=== PATIENT | male | born 1960 | race Caucasian/White ===

== ENCOUNTER 2016-09-03 19:06 | Emergency (ER) | payer OTHER ==
[~2016-09-03] VITALS: Ht 175.3 cm; Wt 97.5 kg
--- NOTE | 2016-09-03 19:06 | NUR ---
Patient MARY ELLENSuleman ANDREA, triaged by RN. Waiting for an available bed.
[2016-09-03 19:12] VITALS: BP 145/89
[2016-09-03] MEDS ORDERED: ZOCOR40 MG PO (19:50)
--- NOTE | 2016-09-03 19:50 | NUR ---
PT TAKEN TO BED 5
[2016-09-03] MEDS ORDERED: ATARAX HCL25 MG PO (19:53)
[2016-09-03] MEDS ORDERED: VITAMIN D1000 IU PO (19:53)
[2016-09-03] MEDS ORDERED: COLACE100 M1 PO (19:53)
[2016-09-03] MEDS ORDERED: MICRONASE5 MG PO (19:53)
[2016-09-03] MEDS ORDERED: LOTENSIN20 MG PO (19:53)
[2016-09-03] MEDS ORDERED: ZOLOFT50 MG PO (19:53)
[2016-09-03] MEDS ORDERED: PEPCID20 MG PO (19:53)
[2016-09-03] MEDS ORDERED: GLUCOPHAGE1000 MG PO (19:53)
[2016-09-03] MEDS ORDERED: ELAVIL50 MG PO (19:53)
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
--- NOTE | 2016-09-03 20:10 | NUR ---
TAKE PATIENT TO X-RAY
--- NOTE | 2016-09-03 20:39 | NUR ---
PATIENT BACK FROM X-RAY
--- NOTE | 2016-09-03 20:58 | NUR ---
Dr. Naranjo evaluating patient at bedside.
[2016-09-03] MEDS ORDERED: ACETAMINOPHEN EXTRA STRENGTH 500 MG TAB PO ONE (21:35)
--- NOTE | 2016-09-03 21:50 | NUR ---
Patient discharged with v/s stable. Written and verbal after care instructions given and explained. Patient verbalized understanding. Ambulatory with steady gait. All questions addressed prior to discharge. Advised to follow up with PMD.
[2016-09-03 21:51] VITALS: BP 115/72
== END 2016-09-03 21:50 | disposition home or self-care (01) ==
LOC: MED 19:06
DX: S16.1XXA Strain of muscle, fascia and tendon at neck level, initial encounter (principal); E11.9 Type 2 diabetes mellitus without complications; I10 Essential (primary) hypertension; V89.2XXA Person injured in unspecified motor-vehicle accident, traffic, initial encounter; Y93.89 Activity, other specified; Y92.89 Other specified places as the place of occurrence of the external cause; Y99.8 Other external cause status

== ENCOUNTER 2018-08-06 08:58 | Emergency (ER) | payer OTHER ==
[~2018-08-06] VITALS: Ht 172.7 cm; Wt 88.9 kg
[~2018-08-06 08:58] MED LIST: ATA25 PO; BENA20TA PO; DOCU-299 PO; ELA50 PO; FAMO-90 PO; METF1000 PO; MIC5 PO; SERT50TA PO; SIMV40TA1 PO; VITD1000 PO
[2018-08-06 09:04] VITALS: BP 133/78
--- NOTE | 2018-08-06 09:12 | NUR ---
PT AMBULATES TO BED 2
[2018-08-06] MEDS ORDERED: KETOROLAC 60 MG/2 ML VIAL IM ONE (09:15)
--- NOTE | 2018-08-06 09:25 | NUR ---
Patient being evaluated by physician at bedside.
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
[2018-08-06 10:45] VITALS: BP 124/76
--- NOTE | 2018-08-06 10:45 | NUR ---
Patient discharged with v/s stable. Written and verbal after care instructions given and explained. Patient alert, oriented and verbalized understanding of instructions. Ambulatory with steady gait. All questions addressed prior to discharge. ID band removed. Patient advised to follow up with PMD. Rx of NORCO AND MOTRIN given. Patient educated on indication of medication including possible reaction and side effects. Opportunity to ask questions provided and answered.
== END 2018-08-06 10:45 | disposition home or self-care (01) ==
LOC: MED 08:58
DX: M54.6 Pain in thoracic spine (principal); M25.512 Pain in left shoulder; E11.9 Type 2 diabetes mellitus without complications; I10 Essential (primary) hypertension; Z79.84 Long term (current) use of oral hypoglycemic drugs; Z79.899 Other long term (current) drug therapy; Z90.49 Acquired absence of other specified parts of digestive tract; Z88.5 Allergy status to narcotic agent
CPT/HCPCS: 96372; 99283; J1885

== ENCOUNTER 2019-02-16 00:55 | Inpatient (IN) | payer OTHER ==
[~2019-02-16] VITALS: Ht 170.2 cm; Wt 80.7 kg
[2019-02-16 00:59] VITALS: BP 167/90
--- NOTE | 2019-02-16 00:59 | NUR ---
PT BIBA BLS TO ER BED 2
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
[2019-02-16] MEDS ORDERED: FAMOTIDINE 20 MG/2 ML VIAL IVP ONE (01:15)
[2019-02-16] MEDS ORDERED: NACL 0.9% 1,000 ML IV ONE (01:15)
[2019-02-16] MEDS ORDERED: ONDANSETRON 4 MG/2 ML VIAL IVP ONE (01:15)
[2019-02-16 01:49] LABS: BASOPHILS % (AUTO) 0.7 % (0.0-2.0); EOSINOPHILS # (AUTO) 0.3 K/uL (0-0.4); EOSINOPHILS % (AUTO) 3.9 % (0.0-4.0); HEMATOCRIT 39.5 % (36-52); HEMOGLOBIN 13.6 g/dL (12.0-18.0); LYMPHOCYTES # (AUTO) 1.5 K/uL (2.0-11.5); LYMPHOCYTES % (AUTO) 23.1 % (20.5-51.1); MEAN CORPUSCULAR HEMOGLOBIN 29 pg (27-31); MEAN CORPUSCULAR HGB CONC 34 g/dL (33-37); MEAN CORPUSCULAR VOLUME 85.2 fL (80-94); MONOCYTES # (AUTO) 0.4 K/uL (0.8-1.0); MONOCYTES % (AUTO) 6.1 % (1.7-9.3); NEUTROPHILS # (AUTO) 4.4 K/uL (1.8-7.7); NEUTROPHILS % (AUTO) 66.2 % (42.2-75.2); PLATELET COUNT (AUTO) 272 K/uL (140-450); RED BLOOD CELL COUNT(AUTO) 4.63 MIL/uL (4.20-6.10); WHITE BLOOD COUNT (AUTO) 6.6 K/uL (4.8-10.8)
--- NOTE | 2019-02-16 02:00 | NUR ---
PT REPORTING SOME RELIEF FROM SYMPTOMS AT THIS TIME. NO EPISODES OF VOMITTING SINCE MEDICATION ADMIN.
[2019-02-16 02:07] LABS: PROTHROMBIN TIME 9.6 secs (10.8-13.4)
[2019-02-16 02:10] LABS: ALBUMIN 3.7 g/dL (3.4-5.0); ANION GAP 12.5 (8-16); CARBON DIOXIDE 29.1 mmol/L (21-32); CREATININE 0.6 mg/dL (0.7-1.3); POTASSIUM 3.6 mmol/L (3.5-5.1); TOTAL BILIRUBIN 0.4 mg/dL (0.0-1.0)
[2019-02-16] MEDS ORDERED: INSULIN REGULAR, HUMAN 100 UNIT/ML VIAL IVP ONE (02:15)
[2019-02-16 02:37] LABS: APPEARANCE,URINE CLEAR (CLEAR); BILIRUBIN,URINE NEGATIVE (NEGATIVE); BLOOD, URINE NEGATIVE (NEGATIVE); COLOR,URINE YELLOW (YELLOW); LEUKOCYTE ESTERASE ,URINE NEGATIVE (NEGATIVE); NITRITE, URINE NEGATIVE (NEGATIVE); UGLUCOSE 3+ (NEGATIVE)
[2019-02-16 02:46] LABS: RBC,URINE 0-5 /HPF (0-5)
[2019-02-16 02:49] LABS: WBC,URINE NONE SEEN /HPF (0-5); YEAST,URINE Rare /HPF (None Seen)
[2019-02-16] MEDS ORDERED: PANTOPRAZOLE 40 MG INJ VIAL IVP ONE (03:10)
[2019-02-16] MEDS ORDERED: PIPERACILLIN/TAZOBACTAM 3.375 GM in DEXTROSE 5% 50 ML IV ONE (03:10)
[2019-02-16] MEDS ORDERED: PIPERACILLIN/TAZOBACTAM 3.375 GM VIAL IV ONE (03:24)
--- NOTE | 2019-02-16 04:02 | NUR ---
Patient will be admitted to care of DR PAZ. Admited to TELE. Will go to room ICU-05. Belongings list completed. Report to DANETTE LAUREN.
[2019-02-16] MEDS ORDERED: DOCUSATE SODIUM 250 MG GELCAP PO PRN (04:20)
[2019-02-16] MEDS ORDERED: MORPHINE SULFATE 2 MG/ML SYR IVP PRN (04:20)
[2019-02-16] MEDS ORDERED: IPRATROPIUM 0.02% 0.5 MG/2.5 ML NEBU INH PRN (04:20)
[2019-02-16] MEDS ORDERED: POTASSIUM CHLORIDE 40 MEQ, LIDOCAINE 1% 25 MG in NACL 0.9% 250 ML IV PRN (04:20)
[2019-02-16] MEDS ORDERED: guaiFENesin DM 200/20 MG-10 ML 10 ML UDC PO PRN (04:20)
[2019-02-16] MEDS ORDERED: HYDROcodone/APAP 5/325 MG 1 TAB TAB PO PRN ×2 (04:20)
[2019-02-16] MEDS ORDERED: DEXTROSE 50% 50 ML SYR IVP PRN (04:20)
[2019-02-16] MEDS ORDERED: ZOLPIDEM 5 MG TAB PO PRN (04:20)
[2019-02-16] MEDS ORDERED: ALBUTEROL 0.083% 2.5 MG/3 ML NEBU INH PRN (04:20)
[2019-02-16] MEDS ORDERED: ALUMINUM HYD/MAG/SIMETHICONE 30 ML UDC PO PRN (04:20)
[2019-02-16] MEDS ORDERED: LORazepam 2 MG/ML VIAL IVP PRN (04:20)
[2019-02-16] MEDS ORDERED: BISACODYL 10 MG SUPP RC PRN (04:20)
[2019-02-16] MEDS ORDERED: MAGNESIUM OXIDE 400 MG TAB PO PRN (04:20)
[2019-02-16] MEDS ORDERED: diphenhydrAMINE 50 MG/ML VIAL IVP PRN (04:20)
[2019-02-16] MEDS ORDERED: POTASSIUM CHLORIDE 10 MEQ TABER PO PRN (04:20)
[2019-02-16] MEDS ORDERED: MAG SULF 2000 MG/WATER PREMIX 50 ML IV PRN (04:20)
[2019-02-16] MEDS ORDERED: SODIUM PHOSPHATE 118 ML ENEM RC PRN (04:20)
[2019-02-16] MEDS ORDERED: cloNIDine 0.1 MG TAB PO PRN (04:20)
[2019-02-16] MEDS ORDERED: ONDANSETRON 4 MG/2 ML VIAL IVP PRN (04:20)
[2019-02-16] MEDS ORDERED: ACETAMINOPHEN 650 MG SUPP RC PRN (04:20)
--- NOTE | 2019-02-16 04:30 | NUR ---
PATIENT ARRIVED FROM ER VIA GURNEY. PATIENT AA0X4. ABLE TO TRANSFER TO BED. PRESENT ON ADMISSION. PATIENT SET UP ON MONITOR. VVS. 129/76-17-100% ON 3L O2-86. NO SOB. NO DIFFICULTY BREATHING. PATIENT FOLLOWS COMMANDS. ABLE TO COMMUNICATE NEEDS. COLOR PINK, WARM AND DRY. LUNG SOUNDS SYMMETRICAL AND PRESENT WITH CLEAR DIMINISHED SOUNDS BILATERALLY, BOWEL SOUNDS ACTIVE IN ALL 4 QUADRANTS. SKIN INTACT WITH A CLOSED SCAB DIME SIZE TO RIGHT ANKLE PRIOR TO ADMISSION. STATES NO PAIN AT THIS TIME. DENIES ABDOMINAL PAIN AT THIS TIME. PATIENT STATES HAVING A STEAK, BAKED POTATO AND VEGGIES DINNER WHEN FELT WEAK. HAD NAUSEA AND VOMITING ONSET AROUND 1830 ON 02/15/2019. PATIENT DENIES NAUSEA AND VOMITING AT THIS TIME. REQUESTING WATER. PATIENT REPORTS REGULAR DIET. PULSES FELT IN ALL EXTREMITIES. CAP REFILL LESS THAN 3. NO EDEMA NOTED. INTACT SKIN. VSS AT TIME TIME. PATIENT STATES ABLE TO AMBULATE BUT USES ASSISTANCE TO HELP STEADY. SAFETY MEASURES IN PLACE. HOB 30 DEGREES.
[2019-02-16] MEDS: NACL 0.9% 1,000 ML IV SCH ×2 (04:56→17:26)
[2019-02-16] MEDS ORDERED: cefTRIAXone 1,000 MG VIAL ONE ×2 (05:06→05:07)
--- NOTE | 2019-02-16 06:20 | NUR ---
PT LEFT THE UNIT AND TRANSFERRED TO [facility]. PT AWAKE, ALERT AND ORIENTED. ABLE TO MAKE NEEDS KNOWN. VS REMAINS STABLE.
[2019-02-16 06:22] LABS: BASOPHILS % (AUTO) 0.5 % (0.0-2.0); EOSINOPHILS # (AUTO) 0.1 K/uL (0-0.4); EOSINOPHILS % (AUTO) 1.1 % (0.0-4.0); HEMATOCRIT 37.1 % (36-52); HEMOGLOBIN 12.7 g/dL (12.0-18.0); LYMPHOCYTES # (AUTO) 1.2 K/uL (2.0-11.5); LYMPHOCYTES % (AUTO) 16.8 % (20.5-51.1); MEAN CORPUSCULAR HEMOGLOBIN 29 pg (27-31); MEAN CORPUSCULAR HGB CONC 34 g/dL (33-37); MEAN CORPUSCULAR VOLUME 85.5 fL (80-94); MONOCYTES # (AUTO) 0.4 K/uL (0.8-1.0); MONOCYTES % (AUTO) 5.1 % (1.7-9.3); NEUTROPHILS # (AUTO) 5.7 K/uL (1.8-7.7); NEUTROPHILS % (AUTO) 76.5 % (42.2-75.2); PLATELET COUNT (AUTO) 259 K/uL (140-450); RED BLOOD CELL COUNT(AUTO) 4.33 MIL/uL (4.20-6.10); RED CELL DISTRIBUTION WIDTH 13.2 % (11.6-13.7); WHITE BLOOD COUNT (AUTO) 7.4 K/uL (4.8-10.8)
--- NOTE | 2019-02-16 07:00 | NUR ---
RECEIVED REPORT FROM ICU NURSE. PATIENT LYING DOWN IN BED SLEEPING, AROUSABLE BY VOICE. NO DISTRESS NOTED. DENIES ANY PAIN AT THIS TIME. AAOX4, CALM, COOPERATIVE, SKIN COLOR APPROPRIATE ETHNICITY, WARM TO TOUCH. SKIN INTACT. IV SITE INTACT, PATENT, AND INFUSING IVF PER MD ORDERS. ABDOMEN SOFT, NON-DISTENDED. LBM 02/14/19 PER PATIENT REPORTS. REVIEWED PLAN OF CARE WITH PATIENT. PATIENT VERBALIZED UNDERSTANDING. SAFETY MEASURES IN PLACE, CALL LIGHT WITHIN REACH. WILL CONTINUE TO MONITOR.
[2019-02-16 08:00] VITALS: BP 119/75
[2019-02-16] MEDS: INSULIN LISPRO SLIDING SCALE 100 UNITS/ML VIAL SUBQ PRN ×4 (08:20→20:59)
[2019-02-16] MEDS: BLOOD GLUCOSE MONITORING 1 DEV DEV FS SCH ×4 (08:20→20:53)
--- NOTE | 2019-02-16 08:20 | NUR ---
PATIENT SITTING DOWN IN BED WITH BREAKFAST TRAY IN FRONT. NO DISTRESS NOTED. DENIES ANY PAIN. SCHEDULED MEDICATIONS DUE GIVEN. WILL CONTINUE TO MONITOR.
--- NOTE | 2019-02-16 10:28 | NUR ---
PATIENT SITTING IN BED WATCHING TV. NO DISTRESS NOTED. DENIES ANY PAIN. CONDITION UNCHANGED. WILL CONTINUE TO MONITOR.
[2019-02-16 12:00] VITALS: BP 117/74
--- NOTE | 2019-02-16 12:17 | NUR ---
PATIENT LYING DOWN IN BED SLEEPING, AROUSABLE BY VOICE. NO DISTRESS NOTED. CONDITION UNCHANGED. SCHEDULED MEDICATIONS DUE GIVEN. WILL CONTINUE TO MONITOR.
[2019-02-16] MEDS ORDERED: DOCUSATE SODIUM 100 MG GELCAP PO PRN (12:25)
[2019-02-16] MEDS ORDERED: hydrOXYzine HCL 25 MG TAB PO PRN (12:25)
[2019-02-16] MEDS: ACETAMINOPHEN 325 MG TAB PO PRN (15:04)
[2019-02-16 16:00] VITALS: BP 124/80
--- NOTE | 2019-02-16 17:22 | NUR ---
PATIENT HAS SPUTUM CULTURE PENDING AND STOOL OB. PATIENT ALREADY KNOWS AND VERBALIZED UNDERSTANDING, HOWEVER, NO SPUTUM OR BM YET. WILL CONTINUE TO MONITOR.
--- NOTE | 2019-02-16 17:28 | NUR ---
PATIENT SITTING DOWN IN BED WATCHING TV. TALKING TO FAMILY MEMBER AT BEDSIDE. SCHEDULED MEDICATIONS DUE GIVEN. WILL CONTINUE TO MONITOR.
--- NOTE | 2019-02-16 19:28 | NUR ---
GAVE REPORT TO VERMIN EXTERMINATOR NURSE FOR CONTINUITY OF CARE. PATIENT IN STABLE CONDITION.
--- NOTE | 2019-02-16 19:29 | NUR ---
RECEIVED REPORT FROM DAY SHIFT NURSE SHANTAL-RN AT BEDSIDE. PT RESTING IN BED, AOX4, ON ROOM AIR WITH RIGHT HAND #18G RUNNING NS @ 70ML/HR. DISCUSSED PLAN OF CARE AND PT VERBALIZED UNDERSTANDING. NO S/S OF RESPIRATORY DISTRESS OR DISCOMFORT NOTED AT THIS TIME. BED IN LOWEST POSITION, BED BREAKS ON, BED SIDE RIALS UP AND FALL PRECAUTIONS IN PLACE. BEDSIDE TABLE AND CALL LIGHT ARE WITHIN REACH. WILL CONTINUE TO MONITOR.
[2019-02-16 20:00] VITALS: BP 116/72
--- NOTE | 2019-02-16 20:00 | NUR ---
VITAL SIGNS TAKEN AND TOLERATED WELL. BLOOD GLUCOSE 380- WILL ADMINISTER INSULIN COVERAGE. NO S/S OF RESPIRATORY DISTRESS OR DISCOMFORT NOTED AT THIS TIME. WILL CONTINUE TO MONITOR.
[2019-02-16] MEDS: SIMVASTATIN 40 MG TAB PO SCH (20:51)
[2019-02-16] MEDS: AMITRIPTYLINE 50 MG TAB PO SCH (20:52)
[2019-02-16] MEDS: FAMOTIDINE 20 MG TAB PO SCH (20:52)
[2019-02-16] MEDS: metFORMIN 500 MG TAB PO SCH (20:52)
[2019-02-16] MEDS: glyBURIDE 5 MG TAB PO SCH (20:52)
--- NOTE | 2019-02-16 21:00 | NUR ---
SCHEDULED MEDICATIONS GIVEN AND TOLERATED WELL. INSULIN COVERAGE GIVEN AND TOLERATED WELL. NO S/S OF RESPIRATORY DISTRESS OR DISCOMFORT NOTED AT THIS TIME. WILL CONTINUE TO MONITOR.
--- NOTE | 2019-02-16 22:00 | NUR ---
PT SLEEPING IN BED. NO S/S OF RESPIRATORY DISTRESS OR DISCOMFORT NOTED AT THIS TIME. WILL CONTINUE TO MONITOR.
[2019-02-17] VITALS: BP 100/69
--- NOTE | 2019-02-17 | NUR ---
VITAL SIGNS TAKEN AND TOLERATED WELL. NO S/S OF RESPIRATORY DISTRESS OR DISCOMFORT NOTED AT THIS TIME. WILL CONTINUE TO MONITOR.
--- NOTE | 2019-02-17 02:00 | NUR ---
PT CONTINUES SLEEPING IN BED. NO S/S OF RESPIRATORY DISTRESS OR DISCOMFORT NOTED AT THIS TIME. WILL CONTINUE TO MONITOR.
--- NOTE | 2019-02-17 03:39 | NUR ---
SCHEDULED MEDICATION ROCEPHIN GIVEN AND TOLERATED WELL. NO S/S OF RESPIRATORY DISTRESS OR DISCOMFORT NOTED AT THIS TIME. WILL CONTINUE TO MONITOR.
[2019-02-17 04:00] VITALS: BP 93/60
--- NOTE | 2019-02-17 04:00 | NUR ---
VITAL SIGNS TAKEN AND TOLERATED WELL. NO S/S OF RESPIRATORY DISTRESS OR DISCOMFORT NOTED AT THIS TIME. WILL CONTINUE TO MONITOR.
--- NOTE | 2019-02-17 06:00 | NUR ---
BLOOD GLUCOSE 209- WILL ADMINISTER INSULIN COVERAGE. NO S/S OF RESPIRATORY DISTRESS OR DISCOMFORT NOTED AT THIS TIME. WILL CONTINUE TO MONITOR.
[2019-02-17] MEDS: BLOOD GLUCOSE MONITORING 1 DEV DEV FS SCH ×4 (06:37→21:07)
[2019-02-17] MEDS: INSULIN LISPRO SLIDING SCALE 100 UNITS/ML VIAL SUBQ PRN ×4 (06:42→21:10)
--- NOTE | 2019-02-17 06:42 | NUR ---
INSULIN COVERAGE GIVEN AND TOLERATED WELL. PT RESTING IN BED. NO S/S OF RESPIRATORY DISTRESS OR DISCOMFORT NOTED AT THIS TIME. WILL CONTINUE TO MONITOR.
--- NOTE | 2019-02-17 07:37 | NUR ---
RECEIVED HAND OFF REPORT FROM NURSE MIDWIFE/CLINICAL INSTRUCTOR NURSE PT APPEARS STABLE AND IN NO APPARENT DISTRESS. ALL SAFETY MEASURES ARE IN PLACE WILL CONTINUE TO MONITOR.
[2019-02-17 07:41] LABS: MAGNESIUM 1.7 mg/dL (1.8-2.4); PHOSPHORUS 3.3 mg/dL (2.5-4.9)
[2019-02-17 07:54] LABS: BASOPHILS # (AUTO) 0.1 K/uL (0.00-0.22); BASOPHILS % (AUTO) 1.2 % (0.0-2.0); EOSINOPHILS # (AUTO) 0.4 K/uL (0-0.4); EOSINOPHILS % (AUTO) 6.6 % (0.0-4.0); HEMATOCRIT 34.2 % (36-52); HEMOGLOBIN 11.7 g/dL (12.0-18.0); LYMPHOCYTES # (AUTO) 2.2 K/uL (2.0-11.5); MEAN CORPUSCULAR HEMOGLOBIN 29 pg (27-31); MEAN CORPUSCULAR HGB CONC 34 g/dL (33-37); MONOCYTES # (AUTO) 0.3 K/uL (0.8-1.0); MONOCYTES % (AUTO) 4.9 % (1.7-9.3); NEUTROPHILS # (AUTO) 3.7 K/uL (1.8-7.7); NEUTROPHILS % (AUTO) 54.3 % (42.2-75.2); PLATELET COUNT (AUTO) 228 K/uL (140-450); RED BLOOD CELL COUNT(AUTO) 3.98 MIL/uL (4.20-6.10); RED CELL DISTRIBUTION WIDTH 12.9 % (11.6-13.7); WHITE BLOOD COUNT (AUTO) 6.8 K/uL (4.8-10.8)
[2019-02-17 08:00] VITALS: BP 105/64
[2019-02-17 08:41] LABS: CREATININE 0.6 mg/dL (0.7-1.3)
[2019-02-17] MEDS: SERTRALINE 50 MG TAB PO SCH (08:59)
[2019-02-17] MEDS: BENAZEPRIL 20 MG TAB PO SCH (09:00)
[2019-02-17] MEDS: FAMOTIDINE 20 MG TAB PO SCH ×2 (09:00→21:01)
[2019-02-17] MEDS: glyBURIDE 5 MG TAB PO SCH ×2 (09:00→21:01)
[2019-02-17] MEDS: CHOLECALCIFEROL 1,000 IU TAB PO SCH (09:00)
[2019-02-17] MEDS: metFORMIN 500 MG TAB PO SCH ×2 (09:00→21:01)
[2019-02-17] MEDS: NACL 0.9% 1,000 ML IV SCH ×2 (09:01→23:14)
--- NOTE | 2019-02-17 09:40 | NUR ---
CALLED MICHAEL [phone] FOR SWALLOW EVAL. LEFT VOICEMAIL.
--- NOTE | 2019-02-17 10:06 | NUR ---
FREQUENT ROUNDING ON PT PT APPEARS STABLE AND IN NO APPARENT DISTRESS, ALL SAFETY MEASURES ARE IN PLACE WILL CONTINUE TO MONITOR.
[2019-02-17 12:00] VITALS: BP 98/65
--- NOTE | 2019-02-17 12:19 | NUR ---
PATIENT HAS BEEN SCREENED AND CATEGORIZED MODERATE NUTRITION RISK. PATIENT WILL BE SEEN WITHIN 3-5 DAYS OF ADMISSION. 02/19/19 - 02/21/19 NOE COTO MBA, RD
[2019-02-17 16:00] VITALS: BP 90/57
--- NOTE | 2019-02-17 19:25 | NUR ---
RECEIVED BEDSIDE REPORT FROM DAY SHIFT NURSE. PATIENT IS AWAKE, ALERT, AND COOPERATIVE. RESPIRATION EVEN UNLABORED ON ROOM AIR. NO DISTRESS NOTED. SKIN IS WARM AND DRY. IV PATENT AND INTACT. DENIES PAIN. AT BEDSIDE. PLAN OF CARE WAS DISCUSSED. ALL SAFETY MEASURES IN PLACE. BED IS AT LOW POSITION CALL LIGHT WITHIN REACH. WILL CONTINUE TO MONITOR.
--- NOTE | 2019-02-17 19:28 | NUR ---
ENDORSED PT TO PM RN ALL SAFETY MEASURES ARE IN PLACE. PT APPEARS STABLE ANDIN NO APPARENT DISTRESS.
[2019-02-17 20:00] VITALS: BP 90/59
--- NOTE | 2019-02-17 20:00 | NUR ---
INITIAL ASSESSMENT DONE. VITALS WERE TAKEN. PATIENT STABLE CONDITION. NO DISTRESS NOTED. WILL CONTINUE TO MONITOR.
--- NOTE | 2019-02-17 21:00 | NUR ---
ALL SCHEDULED MEDS WERE GIVEN PER ORDER. NO DISTRESS NOTED. WILL CONTINUE TO MONITOR.
[2019-02-17] MEDS: SIMVASTATIN 40 MG TAB PO SCH (21:01)
--- NOTE | 2019-02-17 21:10 | NUR ---
PATIENT COMPLAINED OF RIGHT HAND PAIN 5/10. PATIENT IV GOT INFILTRATED. D/C IV NO ACTIVE BLEEDING SEEN. CANNULA INTACT. PLACE PILLOW ON THE RIGHT HAND TO REDUCE THE SWELLING. WILL CONTINUE TO MONITOR.
[2019-02-17] MEDS: AMITRIPTYLINE 50 MG TAB PO SCH (21:13)
--- NOTE | 2019-02-17 21:30 | NUR ---
INSERTED A NEW IV TO THE LEFT FOREARM 22 G TOLERATING IT WELL. WILL CONTINUE TO MONITOR.
--- NOTE | 2019-02-17 22:45 | NUR ---
PATIENT WATCHING TV RESPIRATION EVEN UNLABORED ON ROOM AIR. NO S/SX OF INFILTRATION FROM THE IV SITE. WILL CONTINUE TO MONITOR.
[2019-02-18] VITALS: BP 98/66
--- NOTE | 2019-02-18 | NUR ---
VITALS WERE TAKEN. PATIENT IN STABLE CONDITION. NO DISTRESS NOTED. WILL CONTINUE TO MONITOR.
--- NOTE | 2019-02-18 02:00 | NUR ---
CHECKED PATIENT. PATIENT SLEEPING RESPIRATION EVEN UNLABORED ON ROOM AIR. NO DISTRESS NOTED. WILL CONTINUE TO MONITOR.
[2019-02-18] MEDS: NACL 0.9% 1,000 ML IV SCH (03:40)
[2019-02-18 04:00] VITALS: BP 108/75
--- NOTE | 2019-02-18 04:00 | NUR ---
VITALS WERE TAKEN. PATIENT IN STABLE CONDITION. NO DISTRESS NOTED. WILL CONTINUE TO MONITOR.
[2019-02-18] MEDS: INSULIN LISPRO SLIDING SCALE 100 UNITS/ML VIAL SUBQ PRN ×4 (06:24→21:29)
[2019-02-18] MEDS: BLOOD GLUCOSE MONITORING 1 DEV DEV FS SCH ×4 (06:25→21:32)
[2019-02-18 06:39] LABS: BASOPHILS % (AUTO) 0.8 % (0.0-2.0); EOSINOPHILS # (AUTO) 0.4 K/uL (0-0.4); EOSINOPHILS % (AUTO) 6.3 % (0.0-4.0); HEMATOCRIT 34.1 % (36-52); HEMOGLOBIN 11.5 g/dL (12.0-18.0); LYMPHOCYTES # (AUTO) 2.4 K/uL (2.0-11.5); LYMPHOCYTES % (AUTO) 43.2 % (20.5-51.1); MEAN CORPUSCULAR HEMOGLOBIN 29 pg (27-31); MEAN CORPUSCULAR HGB CONC 34 g/dL (33-37); MEAN CORPUSCULAR VOLUME 86.1 fL (80-94); MONOCYTES # (AUTO) 0.4 K/uL (0.8-1.0); MONOCYTES % (AUTO) 7.4 % (1.7-9.3); NEUTROPHILS # (AUTO) 2.4 K/uL (1.8-7.7); NEUTROPHILS % (AUTO) 42.3 % (42.2-75.2); PLATELET COUNT (AUTO) 212 K/uL (140-450); RED BLOOD CELL COUNT(AUTO) 3.96 MIL/uL (4.20-6.10); RED CELL DISTRIBUTION WIDTH 13.1 % (11.6-13.7); WHITE BLOOD COUNT (AUTO) 5.7 K/uL (4.8-10.8)
--- NOTE | 2019-02-18 06:43 | NUR ---
ALL DUE MEDS WERE GIVEN AND TOLERATED THEM WELL. NO ASE NOTED. PATIENT IN STABLE CONDITION. WILL CONTINUE TO MONITOR.
--- NOTE | 2019-02-18 07:11 | NUR ---
ENDORSED PATIENT TO DAY SHIFT NURSE FOR CONTINUITY OF CARE. PATIENT IN STABLE CONDITION.
--- NOTE | 2019-02-18 07:22 | NUR ---
RECEIVED HAND OFF REPORT FROM CLAIMS SERVICE ADJUSTOR NURSE PT IS AWAKE IN BED PT APPEARS STABLE AND IN NO APPARENT DISTRESS. ALL SAFETY MEASURES ARE IN PLACE WILL CONTINUE TO MONITOR.
[2019-02-18 07:36] LABS: MAGNESIUM 1.6 mg/dL (1.8-2.4); PHOSPHORUS 3.7 mg/dL (2.5-4.9)
[2019-02-18 08:00] VITALS: BP 92/65
[2019-02-18 08:08] LABS: ANION GAP 10.8 (8-16); CREATININE 0.5 mg/dL (0.7-1.3); POTASSIUM 3.8 mmol/L (3.5-5.1)
[2019-02-18] MEDS: FAMOTIDINE 20 MG TAB PO SCH ×2 (09:37→21:31)
[2019-02-18] MEDS: CHOLECALCIFEROL 1,000 IU TAB PO SCH (09:37)
[2019-02-18] MEDS: metFORMIN 500 MG TAB PO SCH ×2 (09:37→21:31)
[2019-02-18] MEDS: SERTRALINE 50 MG TAB PO SCH (09:37)
[2019-02-18] MEDS: glyBURIDE 5 MG TAB PO SCH ×2 (09:38→21:31)
[2019-02-18] MEDS: BENAZEPRIL 20 MG TAB PO SCH (09:39)
--- NOTE | 2019-02-18 09:45 | NUR ---
FREQUENT ROUNDING ON PT PT APPEARS STABLE AND APPEARS IN NO APPARENT DISTRESS.
[2019-02-18 12:00] VITALS: BP 95/59
--- NOTE | 2019-02-18 13:25 | NUR ---
FREQUENT ROUNDING ON PT PT APPEARS STABLE AND IN NO APPARENT DISTRESS. WILL CONTINUE TO MONITOR,.
--- NOTE | 2019-02-18 13:56 | NUR ---
S.T. BEDSIDE SWALLOW EVAL COMPLETED Pt presents w/ adequate oropharygeal swallow function for solids and thin liquids. No overt s/s aspiration observed. Pt able to self-feed without difficulty. Pt is, however, non-compliant with dietary restrictions. Recommend: 1) Continue regular texture diet, thin liquids ok. 2) Med staff to educate/reinforce compliance with dietary restrictions. No further tx indicated at this time. DC to [facility] care. D/w DANETTE Kumar. Time [id number]
--- NOTE | 2019-02-18 15:35 | NUR ---
FREQUENT ROUNDING ON PT PT APPEARS STABLE AND IN NO APPARENT DISTRESS. OCCULT BLOOD SAMPLE COLLECTED AND SENT TO LAB ALL SAFETY MEASURES ARE IN PLACE WILL CONTINUE TO MONITOR.
[2019-02-18 16:00] VITALS: BP 116/69
--- NOTE | 2019-02-18 17:45 | NUR ---
FREQUENT ROUNDING ON PT PT APPEARS STABLE AND IN NO APPARENT DISTRESS. ALL SAFETY MEASURES ARE IN PLACE WILL CONTINUE TO MONITOR.
--- NOTE | 2019-02-18 19:20 | NUR ---
RECEIVED BEDSIDE REPORT FROM DAY SHIFT NURSE. PATIENT IS AWAKE, ALERT, AND COOPERATIVE. RESPIRATION EVEN UNLABORED ON ROOM AIR. NO DISTRESS NOTED. SKIN IS WARM AND DRY. IV PATENT AND INTACT. DENIES PAIN. AT BEDSIDE. PLAN OF CARE WAS DISCUSSED. ALL SAFETY MEASURES IN PLACE. CALL LIGHT WITHIN REACH AND VERBALIZES ITS USE. WILL CONTINUE TO MONITOR.
--- NOTE | 2019-02-18 19:38 | NUR ---
ENDORSED PT TO PM RN ALL SAFETY MEASURES ARE IN PLACE PT APPEARS STABLE AND IN NO APPARENT DISTRESS.
[2019-02-18 20:00] VITALS: BP 106/73
--- NOTE | 2019-02-18 20:00 | NUR ---
INITIAL ASSESSMENT DONE. VITALS WERE TAKEN. NO DISTRESS NOTED. DENIES PAIN. WILL CONTINUE TO MONITOR
--- NOTE | 2019-02-18 21:00 | NUR ---
ALL SCHEDULED MEDS WERE GIVEN PER ORDER. NO ASE NOTED. WILL CONTINUE TO MONITOR.
[2019-02-18] MEDS: SIMVASTATIN 40 MG TAB PO SCH (21:31)
[2019-02-18] MEDS: AMITRIPTYLINE 50 MG TAB PO SCH (21:32)
--- NOTE | 2019-02-18 22:30 | NUR ---
CHECKED PATIENT. PATIENT ON THE PHONE RESPIRATION EVEN UNLABORED ON ROOM AIR. NO DISTRESS NOTED. WILL CONTINUE TO MONITOR
[2019-02-19] VITALS: BP 97/65
--- NOTE | 2019-02-19 | NUR ---
VITALS WERE TAKEN. PATIENT COMPLAINED OF BACK PAIN SORE 10/31. PRN PAIN TYLENOL ADMINISTERED PER ORDER. NO DISTRESS NOTED. WILL CONTINUE TO MONITOR.
[2019-02-19] MEDS: ACETAMINOPHEN 325 MG TAB PO PRN (00:26)
--- NOTE | 2019-02-19 02:00 | NUR ---
CHECKED PATIENT. PATIENT SLEEPING RESPIRATION EVEN UNLABORED ON ROOM AIR. NO DISTRESS NOTED. WILL CONTINUE TO MONITOR.
[2019-02-19] MEDS: NACL 0.9% 1,000 ML IV SCH (03:50)
[2019-02-19 04:00] VITALS: BP 121/72
--- NOTE | 2019-02-19 04:00 | NUR ---
VITALS WERE TAKEN. PATIENT IN STABLE CONDITION. NO DISTRESS NOTED. WILL CONTINUE TO MONITOR
[2019-02-19] MEDS ORDERED: AMOX-999 PO (05:12)
[2019-02-19] MEDS: INSULIN LISPRO SLIDING SCALE 100 UNITS/ML VIAL SUBQ PRN (06:23)
[2019-02-19] MEDS: BLOOD GLUCOSE MONITORING 1 DEV DEV FS SCH (06:26)
[2019-02-19 07:06] LABS: BASOPHILS % (AUTO) 0.7 % (0.0-2.0); EOSINOPHILS # (AUTO) 0.3 K/uL (0-0.4); EOSINOPHILS % (AUTO) 6.2 % (0.0-4.0); HEMATOCRIT 34.7 % (36-52); LYMPHOCYTES # (AUTO) 2.2 K/uL (2.0-11.5); LYMPHOCYTES % (AUTO) 43.5 % (20.5-51.1); MEAN CORPUSCULAR HEMOGLOBIN 30 pg (27-31); MEAN CORPUSCULAR HGB CONC 35 g/dL (33-37); MEAN CORPUSCULAR VOLUME 85.1 fL (80-94); MONOCYTES # (AUTO) 0.4 K/uL (0.8-1.0); MONOCYTES % (AUTO) 7.6 % (1.7-9.3); NEUTROPHILS # (AUTO) 2.2 K/uL (1.8-7.7); PLATELET COUNT (AUTO) 212 K/uL (140-450); RED BLOOD CELL COUNT(AUTO) 4.08 MIL/uL (4.20-6.10); RED CELL DISTRIBUTION WIDTH 13.1 % (11.6-13.7); WHITE BLOOD COUNT (AUTO) 5.1 K/uL (4.8-10.8)
[2019-02-19 07:10] LABS: ALBUMIN 2.7 g/dL (3.4-5.0); ANION GAP 10.5 (8-16); CARBON DIOXIDE 27.2 mmol/L (21-32); CREATININE 0.5 mg/dL (0.7-1.3); POTASSIUM 3.7 mmol/L (3.5-5.1); TOTAL BILIRUBIN 0.3 mg/dL (0.0-1.0)
[2019-02-19 07:13] LABS: MAGNESIUM 1.6 mg/dL (1.8-2.4); PHOSPHORUS 3.6 mg/dL (2.5-4.9)
--- NOTE | 2019-02-19 07:17 | NUR ---
ENDORSED PATIENT TO DAY SHIFT NURSE. PATIENT IN STABLE CONDITION.
--- NOTE | 2019-02-19 07:43 | NUR ---
RECEIVED HAND OFF REPORT FROM SENIOR APPLICATION PROGRAMMER NURSE PT IS AWAKE IN BED PT APPEARS STABLE AND IN NO APPARENT DISTRESS. ALL SAFETY MEASURES ARE IN PLACE WILL CONTINUE TO MONITOR.
[2019-02-19 08:00] VITALS: BP 130/78
--- NOTE | 2019-02-19 09:25 | NUR ---
FREQUENT ROUNDING ON PT PT APPEARS STABLE AND IN NO APPARENT DISTRESS. INFORMED PT OF PLAN FOR DISCHARGE PT IS READY
[2019-02-19] MEDS: metFORMIN 500 MG TAB PO SCH (09:36)
[2019-02-19] MEDS: CHOLECALCIFEROL 1,000 IU TAB PO SCH (09:36)
[2019-02-19] MEDS: glyBURIDE 5 MG TAB PO SCH (09:37)
[2019-02-19] MEDS: FAMOTIDINE 20 MG TAB PO SCH (09:37)
[2019-02-19] MEDS: BENAZEPRIL 20 MG TAB PO SCH (09:37)
[2019-02-19] MEDS: SERTRALINE 50 MG TAB PO SCH (09:38)
[2019-02-19 11:38] VITALS: BP 130/78
--- NOTE | 2019-02-19 12:12 | NUR ---
REVIEWED DISCHARGE INSTRUCTIONS ANSWERED ALL QUESTIONS PT HAS. PT APPEARS STABLE AND IN NO APPARENT DISTRESS. PT SIGNED ALL PAPER WORK AND HAS ALL HIS PERSONAL BELONGINGS IN PLACE. PT IS WAITING FOR HIS TO PICK HIM UP.
--- NOTE | 2019-02-19 12:30 | NUR ---
CALLED OFFICE OF DR SHEPHERD, SPOKE TO YANNICK, FOLLOW-UP APPOINTMENT MADE ON 03/06/19 AT 0930 AM AT [address] [place] [address]. [phone], [place] [id number]. CALLED PT AT [phone] SPOKE TO FRANK, FOLLOW-UP INFO AND SCHEDULE GIVEN TO , VERBALIZED UNDERSTANDING.
== END 2019-02-19 11:25 | disposition home or self-care (01) | DRG 137 ==
LOC: MED 00:55 → MIC 03:44 → MTU 06:20
PROVIDERS: ADMIT Internal Medicine Pulmonary Disease; ATTEND Internal Medicine Pulmonary Disease
DX: J69.0 Pneumonitis due to inhalation of food and vomit (principal); J96.01 Acute respiratory failure with hypoxia; K21.9 Gastro-esophageal reflux disease without esophagitis; I10 Essential (primary) hypertension; E78.5 Hyperlipidemia, unspecified; Z66 Do not resuscitate; F32.9 Major depressive disorder, single episode, unspecified; E11.65 Type 2 diabetes mellitus with hyperglycemia; F41.9 Anxiety disorder, unspecified; Z88.5 Allergy status to narcotic agent; Z79.899 Other long term (current) drug therapy
CPT/HCPCS: 36415; 71045; 80048; 80053; 81001; 82272; 82948; 83690; 83735; 84100; 85025; 85610; 85730; 87081; 92610; 96361; 96365; 96375; 99285; C9113; J0696; J1815; J2405; J2543; J3490; J7030; J7060; Q0092

== ENCOUNTER 2019-05-17 01:22 | Emergency (ER) | payer OTHER ==
[~2019-05-17] VITALS: Ht 175.3 cm; Wt 86.2 kg
[~2019-05-17 01:22] MED LIST changes: +AMOX-999 PO
[2019-05-17 01:40] VITALS: BP 120/73
--- NOTE | 2019-05-17 01:40 | NUR ---
TO BED # 07 AMBULATORY
[2019-05-17 01:55] VITALS: BP 120/73
--- NOTE | 2019-05-17 01:55 | NUR ---
58 Y/O PRESENTS TO ED WITH C/O LT SHOULDER PAIN X1WEEK, WORSENING LAST NIGHT. AAOX4. 7/10 PAIN. PER PT "I FEEL OUT OF BED ABOUT A WEEK AGO AND IT HASN'T STOPPED HURTING." NO DEFORMITY NOTED. PT UNABLE TO RAISE ARM ABOVE 90 DEGREES WITHOUT PAIN. PT SMOKED MARIJUANA 1 HOUR DIRECTOR EDUCATION FOR PAIN. FAMILY AT BEDSIDE. WILL CONTINUE TO MONITOR.
--- NOTE | 2019-05-17 02:05 | NUR ---
RAD AT BEDSIDE.
[2019-05-17] MEDS ORDERED: KETOROLAC 30 MG/ML VIAL IM ONE (02:30)
[2019-05-17] MEDS ORDERED: HYDROcodone/APAP 5/325 MG 1 TAB TAB PO ONE (02:30)
--- NOTE | 2019-05-17 03:10 | NUR ---
Patient discharged with v/s stable. Written and verbal after care instructions given and explained. Patient alert, oriented and verbalized understanding of instructions. Ambulatory with steady gait. All questions addressed prior to discharge. ID band removed. Patient advised to follow up with PMD. Rx of Naprosyn and norco given. Patient educated on indication of medication including possible reaction and side effects. Opportunity to ask questions provided and answered.
== END 2019-05-17 03:10 | disposition home or self-care (01) ==
LOC: MED 01:22
DX: S46.912A Strain of unspecified muscle, fascia and tendon at shoulder and upper arm level, left arm, initial encounter (principal); F12.10 Cannabis abuse, uncomplicated; I10 Essential (primary) hypertension; E11.9 Type 2 diabetes mellitus without complications; E78.5 Hyperlipidemia, unspecified; Z79.84 Long term (current) use of oral hypoglycemic drugs; Z79.899 Other long term (current) drug therapy; Z79.1 Long term (current) use of non-steroidal anti-inflammatories (NSAID); Z79.2 Long term (current) use of antibiotics; Z88.5 Allergy status to narcotic agent; Z98.890 Other specified postprocedural states; W06.XXXA Fall from bed, initial encounter; Y93.89 Activity, other specified; Y92.89 Other specified places as the place of occurrence of the external cause; Y99.8 Other external cause status
CPT/HCPCS: 73030; 96372; 99283; J1885; Q0092

== ENCOUNTER 2019-10-12 18:50 | Emergency (ER) | payer OTHER ==
[~2019-10-12] VITALS: Ht 177.8 cm; Wt 81.6 kg
[2019-10-12 18:59] VITALS: BP 131/74
--- NOTE | 2019-10-12 19:25 | NUR ---
58 YO MALE CO LWR ABD PAIN THAT RADIATES TO LOWER BACK SINCE YESTERDAY. PAIN IS 7/10 THAT IS BURNING AND STABBING. BS HYPOACTIVE IN ALL FOUR QUADS. NO DISTENSION OR PAIN UPON PALPATION. PT ALSO STATES THAT HE HAS BEEN CONSTIPATED FOR ABOUT 2D.
--- NOTE | 2019-10-12 19:53 | NUR ---
Dr. Molina examining patient.
[2019-10-12] MEDS ORDERED: NACL 0.9% 1,000 ML IV ONE ×2 (19:54→21:55)
[2019-10-12] MEDS ORDERED: ONDANSETRON 4 MG/2 ML VIAL IVP ONE (19:55)
[2019-10-12] MEDS ORDERED: MORPHINE SULFATE 4 MG/ML SYR IVP ONE (19:55)
[2019-10-12 20:15] LABS: BASOPHILS # (AUTO) 0.1 K/uL (0.00-0.22); BASOPHILS % (AUTO) 1.9 % (0.0-2.0); EOSINOPHILS # (AUTO) 0.3 K/uL (0-0.4); EOSINOPHILS % (AUTO) 3.6 % (0.0-4.0); HEMATOCRIT 38.9 % (36-52); HEMOGLOBIN 13.5 g/dL (12.0-18.0); LYMPHOCYTES # (AUTO) 1.5 K/uL (2.0-11.5); MEAN CORPUSCULAR HEMOGLOBIN 30 pg (27-31); MEAN CORPUSCULAR HGB CONC 35 g/dL (33-37); MEAN CORPUSCULAR VOLUME 85.1 fL (80-94); MONOCYTES # (AUTO) 0.6 K/uL (0.8-1.0); MONOCYTES % (AUTO) 7.5 % (1.7-9.3); NEUTROPHILS # (AUTO) 5.1 K/uL (1.8-7.7); PLATELET COUNT (AUTO) 397 K/uL (140-450); RED BLOOD CELL COUNT(AUTO) 4.57 MIL/uL (4.20-6.10); RED CELL DISTRIBUTION WIDTH 12.8 % (11.6-13.7); WHITE BLOOD COUNT (AUTO) 7.6 K/uL (4.8-10.8)
[2019-10-12 20:20] LABS: APPEARANCE,URINE CLEAR (CLEAR); BILIRUBIN,URINE NEGATIVE (NEGATIVE); BLOOD, URINE 3+ (NEGATIVE); COLOR,URINE YELLOW (YELLOW); LEUKOCYTE ESTERASE ,URINE NEGATIVE (NEGATIVE); NITRITE, URINE NEGATIVE (NEGATIVE); PH,URINE 6.5 (5.0-9.0); UGLUCOSE 3+ (NEGATIVE)
--- NOTE | 2019-10-12 20:20 | NUR ---
PT TAKEN TO CT VIA JEN
[2019-10-12 20:27] LABS: RBC,URINE >100 /HPF (0-5); WBC,URINE 0 /HPF (0-5)
[2019-10-12 20:44] LABS: ALBUMIN 3.2 g/dL (3.4-5.0); CARBON DIOXIDE 27.1 mmol/L (21-32); CREATININE 0.8 mg/dL (0.6-1.3); POTASSIUM 4.1 mmol/L (3.5-5.1); TOTAL BILIRUBIN 0.3 mg/dL (0.0-1.0)
--- NOTE | 2019-10-12 20:47 | NUR ---
LAB CALLED TO DILEEP THAT BS WAS 453. ADVISED FARHAD.
--- NOTE | 2019-10-12 21:03 | NUR ---
PT AWAKE AND ALERT IN BED. PT STATES THAT PAIN IS NOW 3/10 AFTER MEDS.
[2019-10-12] MEDS ORDERED: KETOROLAC 30 MG/ML VIAL IVP ONE (22:00)
--- NOTE | 2019-10-12 22:59 | NUR ---
PT LAYING IN BED AWAKE AND ALERT. VSS AND PAIN IS 2/10. NADR TO ANY MEDS.
--- NOTE | 2019-10-13 00:02 | NUR ---
Patient discharged with v/s stable. Written and verbal after care instructions given and explained. Patient alert, oriented and verbalized understanding of instructions. Ambulatory with steady gait. All questions addressed prior to discharge. ID band removed. Patient advised to follow up with PMD. Rx of NORCO, COLACE given. Patient educated on indication of medication including possible reaction and side effects. Opportunity to ask questions provided and answered.
[2019-10-13 00:03] VITALS: BP 136/72
== END 2019-10-13 00:02 | disposition home or self-care (01) ==
LOC: MED 18:50
DX: R31.29 Other microscopic hematuria (principal); N13.30 Unspecified hydronephrosis; R10.84 Generalized abdominal pain; E11.9 Type 2 diabetes mellitus without complications; I10 Essential (primary) hypertension; Z88.5 Allergy status to narcotic agent; Z79.899 Other long term (current) drug therapy
CPT/HCPCS: 36415; 74176; 80053; 81001; 83690; 85025; 87086; 96374; 96375; 99284; J1885; J2270; J2405; J7030